=== PATIENT | male | born 1970 | race Caucasian/White ===

== ENCOUNTER 2017-01-23 12:59 | Emergency (ER) | payer MEDICAID ==
[~2017-01-23] VITALS: Ht 175.3 cm; Wt 79.4 kg
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
[2017-01-23] MEDS ORDERED: ONDANSETRON 4 MG TAB.RAPDIS ONE (13:09)
[2017-01-23] MEDS ORDERED: HYDROCODONE/APAP 5/325MG 1 EACH TABLET PO ONE (13:30)
[2017-01-23] MEDS ORDERED: ONDANSETRON 4 MG TAB.RAPDIS PO ONE (13:30)
[2017-01-23] MEDS ORDERED: HYDROCODONE/APAP 5/325MG 1 EACH TABLET ONE (13:33)
--- NOTE | 2017-01-23 14:10 | NUR ---
PT STILL IN CT
--- NOTE | 2017-01-23 14:14 | NUR ---
RETURNED FROM CT IN STABLE CONDITION. NORCO ADMINISTERED ORDERED. CARDIOLOGIST AT BEDSIDE WITH PASHTO SPEAKING [employer] OFF[employer]ER.
--- NOTE | 2017-01-23 15:24 | NUR ---
Patient discharged to home in stable condition. Written and verbal after care instructions given. Patient verbalizes understanding of instruction. AMBULATORY WITH STEADY GAIT.
[2017-01-23 15:25] VITALS: BP 155/102
== END 2017-01-23 15:26 | disposition home or self-care (01) ==
LOC: ER 13:00
DX: S13.9XXA Sprain of joints and ligaments of unspecified parts of neck, initial encounter (principal); S39.012A Strain of muscle, fascia and tendon of lower back, initial encounter; S80.12XA Contusion of left lower leg, initial encounter; V43.52XA Car driver injured in collision with other type car in traffic accident, initial encounter; Y93.89 Activity, other specified; Y92.413 State road as the place of occurrence of the external cause; Y99.8 Other external cause status
CPT/HCPCS: 72100; 72125; 72220; 73552; 73560; 99284; A4606; Q0162; Z7610; 73550-TC